=== PATIENT | female | born 1945 | race Caucasian/White ===

== ENCOUNTER 2017-04-07 15:11 | Emergency (ER) | payer MEDICARE, OTHER | END 2017-04-07 17:47 | disposition home or self-care (01) | LOC: FER 15:11 | DX: I87.2 Venous insufficiency (chronic) (peripheral) (principal); I73.9 Peripheral vascular disease, unspecified; R26.2 Difficulty in walking, not elsewhere classified; I10 Essential (primary) hypertension; I48.91 Unspecified atrial fibrillation; K22.70 Barrett's esophagus without dysplasia; Z88.2 Allergy status to sulfonamides; Z79.01 Long term (current) use of anticoagulants; Z79.899 Other long term (current) drug therapy; Z85.3 Personal history of malignant neoplasm of breast | CPT/HCPCS: 87070; 87077; 87186; 87205 ==

== ENCOUNTER 2017-04-08 20:33 | Emergency (ER) | payer MEDICARE, OTHER ==
[2017-04-08 21:48] LABS: BASOPHIL 0.6 % (0-2); EOSINOPHIL 1.7 % (0-7); HGB 14.2 g/dl (12.5-16.0); LYMPHOCYTE 31.6 % (15-48); MCH 30.7 pg (25.0-31.0); MCV 92.9 fL (78.0-100.0); MONOCYTE 6.2 % (0-12); MPV 10.2 fL (6.0-9.5); NEUTROPHIL 59.9 % (41-80); PLT 253 K/uL (150-400); RBC 4.63 M/uL (4.20-5.40); RDW 13.9 % (11.5-14.0); WBC 7.1 K/uL (4.0-10.5)
[2017-04-08 22:13] LABS: ALBUMIN 4.1 g/dL (3.4-4.8); BILIRUBIN - TOTAL 0.3 mg/dL (0.1-1.0); CREATININE 0.8 mg/dL (0.5-1.0); GLOBULIN (CALCULATION) 2.6 g/dL (2.2-4.2); POTASSIUM 4.1 mmol/L (3.5-5.1); TOTAL PROTEIN 6.7 g/dL (6.4-8.3)
== END 2017-04-08 23:10 | disposition home or self-care (01) ==
LOC: FER 20:33
PROVIDERS: Emergency Medicine
DX: I87.2 Venous insufficiency (chronic) (peripheral) (principal); I48.91 Unspecified atrial fibrillation; I10 Essential (primary) hypertension; G35 Multiple sclerosis; Z88.2 Allergy status to sulfonamides; Z79.899 Other long term (current) drug therapy; Z85.3 Personal history of malignant neoplasm of breast
CPT/HCPCS: 36415; 80053; 85025; 99283

== ENCOUNTER 2020-12-24 22:54 | Day surgery (SDCO) | payer OTHER ==
[~2020-12-24 22:54] MED LIST: ELIQUIS5 MG PO; FEOSOL325 MG PO; KEFLEX500 MG PO; LASIX40 MG PO; LOPRESSOR50 MG PO; NORCO 5-325 TA1 EACH PO; OMEPRAZOLE40 MG PO; PRAVACHOL20 MG PO; PREDNISONE 20MG20 MG PO; PRILOSEC20 MG PO; PRINIVIL10 MG PO; TOPROL XL100 MG PO
[2020-12-24 23:13] LABS: BASOPHIL 0.5 % (0-2); HCT 45.8 % (37.0-47.0); HGB 14.5 g/dl (12.5-16.0); LYMPHOCYTE 16.9 % (15-48); MCHC 31.7 g/dL (32.0-36.0); MCV 94.8 fL (78.0-100.0); MONOCYTE 7.4 % (0-12); MPV 10.5 fL (6.0-9.5); NRBC 0; PLT 225 K/uL (150-400); RBC 4.83 M/uL (4.20-5.40); WBC 10.4 K/uL (4.0-10.5)
[2020-12-24 23:27] LABS: ALBUMIN 3.5 g/dL (3.4-5.0); BILIRUBIN - DIRECT 0.1 mg/dL (0.00-0.20); BILIRUBIN - TOTAL 0.4 mg/dL (0.2-1.0); BUN/CREAT RATIO (CALC) 20.2 RATIO; CREATININE 0.84 mg/dL (0.51-0.95); GLOBULIN (CALCULATION) 3.6 g/dL; POTASSIUM 3.7 mmol/L (3.5-5.1); TOTAL PROTEIN 7.1 g/dL (6.4-8.2)
[2020-12-25 01:41] LABS: BILIRUBIN NEGATIVE (NEGATIVE); BLOOD NEGATIVE Ery/uL (NEGATIVE); CLARITY CLEAR (CLEAR); COLOR YELLOW (YELLOW); GLUCOSE (U) NORMAL (NORMAL); LEUKOCYTES NEGATIVE Leu/uL (NEGATIVE); NITRITE NEGATIVE (NEGATIVE); PROTEIN NEGATIVE (NEGATIVE); SPECIFIC GRAVITY 1.025 (1.001-1.030); UROBILINOGEN 0.2 mg/dL (0.2-1.0); pH 5.5 (5.0-9.0)
[2020-12-25] MEDS ORDERED: PRAVACHOL20 MG PO (03:48)
[2020-12-25] MEDS ORDERED: PRILOSEC20 MG PO (03:48)
[2020-12-25] MEDS ORDERED: LOPRESSOR50 MG PO (03:49)
[2020-12-25] MEDS ORDERED: PRINIVIL10 MG PO (03:50)
[2020-12-25] MEDS ORDERED: LASIX40 MG PO (03:50)
[2020-12-25] MEDS ORDERED: ELIQUIS5 MG PO (03:50)
[2020-12-25] MEDS ORDERED: CARDIZEM CD120 MG PO (03:51)
--- NOTE | 2020-12-25 04:28 | NUR ---
DUMONT CATHETER INSERTED BY HUGH CHAVEZ RN PER FACUNDO JURADO ORDERS AT [id number]
[2020-12-25 05:07] LABS: INR 1.32 (0.9-1.2); PROTHROMBIN TIME 15.6 SECONDS (11.4-13.6)
[2020-12-25 05:08] LABS: PTT 36.9 SECONDS (22.2-34.7)
[2020-12-25 07:05] LABS: BASOPHIL 0.5 % (0-2); EOSINOPHIL 0.6 % (0-7); HCT 45.9 % (37.0-47.0); HGB 14.8 g/dl (12.5-16.0); LYMPHOCYTE 16.2 % (15-48); MCH 30.2 pg (25.0-31.0); MCHC 32.2 g/dL (32.0-36.0); MCV 93.7 fL (78.0-100.0); MONOCYTE 8.1 % (0-12); MPV 10.5 fL (6.0-9.5); NEUTROPHIL 74.3 % (41-80); NRBC 0; PLT 230 K/uL (150-400); WBC 9.6 K/uL (4.0-10.5)
[2020-12-25 07:48] LABS: BUN/CREAT RATIO (CALC) 17.6 RATIO; C-REACTIVE PROTEIN 1.1 mg/dL (<=0.90); CREATININE 0.91 mg/dL (0.51-0.95); POTASSIUM 3.7 mmol/L (3.5-5.1)
--- NOTE | 2020-12-26 04:05 | NUR ---
PT HAD ORDER AT 0200 DOSE OF 2000MG OF VANCOMYCIN IN 250ML BAG TO GET GIVEN. WHEN SCANNING MEDICATION AND AFTER REVIEW THE MEDICATION PREVIOUSLY MIXED WAS 2000MG OF VANCOMYCIN IN 500ML OF NORMAL SALINE. WHEN I WENT TO GO TO [facility] IN ORDER TO MIX A NEW BAG AT THE CORRECT ORDER THE [facility] RELAYED THE MESSAGE THAT IF THE VANCOMYCIN DOSE WAS GREATER THAN 1500MG THAT IT SHOULD BE MIXED IN A 500ML BAG. CALLED AND SPOKE WITH A PHARMACIST THAT ASKED FOR PATIENTS NAME AND WAS TOLD THAT I WOULD RECIEVE A CALL BACK 0300 DID NOT RECEIEVE A CALL BACK FROM PHARMACY CALLED [facility] AND VEIFIED WITH RAMO THE PHARMACIST AND SHE STATED THAT 2000MG IN 500ML WAS THE CORRECT DOSE AND THAT SHE WOULD PLACE IT THE CORRECT WAY IN THE EMAR AND DISCONTINUE THE OTHER ORDER. VIKKI WAS WRITTEN.
[2020-12-26 05:53] LABS: BASOPHIL 0.5 % (0-2); EOSINOPHIL 1.7 % (0-7); HCT 41.1 % (37.0-47.0); HGB 13.2 g/dl (12.5-16.0); LYMPHOCYTE 21.4 % (15-48); MCH 30.2 pg (25.0-31.0); MCHC 32.1 g/dL (32.0-36.0); MCV 94.1 fL (78.0-100.0); MPV 10.3 fL (6.0-9.5); NEUTROPHIL 66.3 % (41-80); NRBC 0; PLT 210 K/uL (150-400); RBC 4.37 M/uL (4.20-5.40); RDW 14.6 % (11.5-14.0); WBC 7.6 K/uL (4.0-10.5)
[2020-12-26 06:24] LABS: BUN/CREAT RATIO (CALC) 18.9 RATIO; CREATININE 0.9 mg/dL (0.51-0.95); POTASSIUM 3.3 mmol/L (3.5-5.1)
--- NOTE | 2020-12-26 10:49 | NUR ---
12/26/20 Ms. Liu Oconnor lives alone. She has 2 daughters. One daughter visits daily. Ms. Hatfield was modified independent at home prior to "a few days" from admission. She has a CPAP, s. bench, 3in1, rw and wc. Currently she is unable to stand. OT/PT and Dr. Tanner recommend a SNF placement. Discharge options were discussed with Ms. Liu Oconnor. Her daughter, Becki Almazan, was included in the conversation via speaker phone. Ms. Steve Oconnor would like to stay in [place]. She chose [facility] as her first choice and [facility] as the second choice. - Referrals have been made by [facility].
--- NOTE | 2020-12-26 15:32 | NUR ---
REWRAPPED ANEL WRAPS ON BOTH LOWER LEGS FROM TOES TO KNEES.
[2020-12-27 05:36] LABS: BASOPHIL 0.4 % (0-2); HCT 41.8 % (37.0-47.0); HGB 13.3 g/dl (12.5-16.0); LYMPHOCYTE 20.1 % (15-48); MCH 30.2 pg (25.0-31.0); MCHC 31.8 g/dL (32.0-36.0); MCV 94.8 fL (78.0-100.0); MONOCYTE 7.8 % (0-12); MPV 10.4 fL (6.0-9.5); NEUTROPHIL 68.5 % (41-80); NRBC 0; PLT 213 K/uL (150-400); RBC 4.41 M/uL (4.20-5.40); RDW 14.6 % (11.5-14.0); WBC 8.6 K/uL (4.0-10.5)
[2020-12-27 06:36] LABS: BUN/CREAT RATIO (CALC) 20.2 RATIO; CREATININE 0.94 mg/dL (0.51-0.95); POTASSIUM 3.8 mmol/L (3.5-5.1)
[2020-12-27] MEDS ORDERED: KEFLEX250 MG PO (16:32)
[2020-12-27] MEDS ORDERED: FLORANEX TABLE1 EACH PO (16:32)
[2020-12-27] MEDS ORDERED: FUROSEMIDE 40MG40 MG PO (16:32)
[2020-12-27] MEDS ORDERED: DESYREL50 MG PO (16:35)
--- NOTE | 2020-12-27 17:33 | NUR ---
12/27/20 [facility] declined to accept patient. [facility] accepted and has received insurance authorization. Ms. Liu Oconnor accepted placement. Dr. Tanner and MS Laurie RN informed. Dr. Tanner reports pt to meet criteria for EMS transport.
== END 2020-12-27 18:20 ==
LOC: FER 22:54 → FMS 12-25 02:12
PROVIDERS: Allergy & Immunology Allergy; Nurse Practitioner; Student in an Organized Health Care Education/Training Program; ADMIT Internal Medicine
DX: I89.0 Lymphedema, not elsewhere classified (principal); L03.115 Cellulitis of right lower limb; I11.0 Hypertensive heart disease with heart failure; I50.9 Heart failure, unspecified; K22.70 Barrett's esophagus without dysplasia; G47.33 Obstructive sleep apnea (adult) (pediatric); I48.20 Chronic atrial fibrillation, unspecified; E78.5 Hyperlipidemia, unspecified; I73.9 Peripheral vascular disease, unspecified; G35 Multiple sclerosis; M19.90 Unspecified osteoarthritis, unspecified site; G62.9 Polyneuropathy, unspecified; Z20.822 Contact with and (suspected) exposure to COVID-19; Z79.01 Long term (current) use of anticoagulants; Z85.3 Personal history of malignant neoplasm of breast; Z88.2 Allergy status to sulfonamides; Z99.89 Dependence on other enabling machines and devices
CPT/HCPCS: 36415; 71045; 80048; 80076; 81003; 83880; 84484; 85025; 85610; 85730; 86140; 87040; 87077; 93005; 93970; 97163; 97167; 97530; 97530-GP; 97535; G0378; J1940; J2543; J3370; J7050; U0002

== ENCOUNTER 2020-12-29 21:19 | Day surgery (SDCO) | payer OTHER ==
[~2020-12-29 21:19] MED LIST changes: +CARDIZEM CD120 MG PO; +DESYREL50 MG PO; +FLORANEX TABLE1 EACH PO; +FUROSEMIDE 40MG40 MG PO; +KEFLEX250 MG PO
[2020-12-30 00:01] LABS: BASOPHIL 0.4 % (0-2); EOSINOPHIL 1.4 % (0-7); HGB 14.8 g/dl (12.5-16.0); LYMPHOCYTE 10.2 % (15-48); MCH 30.1 pg (25.0-31.0); MCHC 31.5 g/dL (32.0-36.0); MCV 95.7 fL (78.0-100.0); MONOCYTE 7.7 % (0-12); MPV 10.2 fL (6.0-9.5); NEUTROPHIL 80.1 % (41-80); NRBC 0; PLT 262 K/uL (150-400); RBC 4.91 M/uL (4.20-5.40); RDW 14.3 % (11.5-14.0)
[2020-12-30 00:11] LABS: INR 1.56 (0.9-1.2); PROTHROMBIN TIME 17.7 SECONDS (11.4-13.6)
[2020-12-30 00:12] LABS: PTT 37.3 SECONDS (22.2-34.7)
[2020-12-30 00:20] LABS: ALBUMIN 3.4 g/dL (3.4-5.0); BUN/CREAT RATIO (CALC) 23.1 RATIO; C-REACTIVE PROTEIN 6.1 mg/dL (<=0.90); CREATININE 0.91 mg/dL (0.51-0.95); GLOBULIN (CALCULATION) 4.2 g/dL; POTASSIUM 3.8 mmol/L (3.5-5.1); TOTAL PROTEIN 7.6 g/dL (6.4-8.2)
[2020-12-30 07:37] LABS: ALBUMIN 2.8 g/dL (3.4-5.0); BILIRUBIN - TOTAL 0.6 mg/dL (0.2-1.0); BUN/CREAT RATIO (CALC) 24.1 RATIO; CREATININE 0.83 mg/dL (0.51-0.95); GLOBULIN (CALCULATION) 3.5 g/dL; POTASSIUM 4.3 mmol/L (3.5-5.1); TOTAL PROTEIN 6.3 g/dL (6.4-8.2)
--- NOTE | 2020-12-30 14:16 | NUR ---
12/30/20 Ms. Liu Oconnor was admitted to [facility] on 12/27/20. She did not like the facility and left AMA. She reports to have fell in the parking lot. - Referrals have been sent to Arcenio Ye[facility] and [facility] per patient choice.
--- NOTE | 2020-12-30 15:59 | NUR ---
ATTEMPTED TO CATH A URINE IN BEDPAN, 1ST PT MISSED BP, SECOND TIME BRIEF NOT PULLED DOWN FAR ENOUGH. INFORMED MD THAT WAITING FOR PT TO VOID AGAIN. OK WITH WAITING FOR CATCH INSTEAD OF I AND O
[2020-12-31 00:17] LABS: BILIRUBIN NEGATIVE (NEGATIVE); BLOOD NEGATIVE Ery/uL (NEGATIVE); CLARITY CLEAR (CLEAR); COLOR YELLOW (YELLOW); GLUCOSE (U) NORMAL (NORMAL); LEUKOCYTES NEGATIVE Leu/uL (NEGATIVE); NITRITE NEGATIVE (NEGATIVE); PROTEIN NEGATIVE (NEGATIVE); SPECIFIC GRAVITY >=1.030 (1.001-1.030); UROBILINOGEN 0.2 mg/dL (0.2-1.0); pH 5.5 (5.0-9.0)
--- NOTE | 2021-01-01 00:29 | NUR ---
PATIENT AND DAUGHTER DO NOT [facility]. DAUGHTER STATED SHE HAS SPO[facility] [place] [facility] AND WAS INFORMED THAT THERE WILL BE A BED AVAILABLE Wednesday01/02/2021 THE FAMILY WOULD LIKE TO SPEAK WITH [facility] ABOUT GETTING HER MOTHER THERE. IF SHE NEEDS TO SEND HER TO [facility] UNTIL A BED IS AVAILABLE OR IF SHE NEEDS TO TAKE HER HOME THEN TAKE HER MOTHER TO [place] WEDNESDAY.
--- NOTE | 2021-01-01 10:46 | NUR ---
01/01 [facility] continue to be waiting on insurance approval. Fiona Lewis was requested to call insurance for an update.
--- NOTE | 2021-01-01 17:22 | NUR ---
01/01/21 [facility] has received insurance authorization and will accept patient tonight. Report given to Keya and Dr. Mosquera. Pt meets criteria for EMS transport. Please fax DS to: [phone]. Katherin Liu Oconnor accepted the placement.
[2021-01-01] MEDS ORDERED: NORCO 5-325 TA1 EACH PO (17:24)
[2021-01-01] MEDS ORDERED: MELATONIN5 M2 PO (17:24)
== END 2021-01-01 21:18 ==
LOC: FER 21:19 → FMS 12-30 01:11
PROVIDERS: Emergency Medicine Emergency Medical Services; Nurse Practitioner; ADMIT Hospitalist
DX: I89.0 Lymphedema, not elsewhere classified (principal); I48.20 Chronic atrial fibrillation, unspecified; I10 Essential (primary) hypertension; E78.5 Hyperlipidemia, unspecified; I73.9 Peripheral vascular disease, unspecified; W19.XXXA Unspecified fall, initial encounter; G47.30 Sleep apnea, unspecified; G35 Multiple sclerosis; M79.89 Other specified soft tissue disorders; K20.80 Other esophagitis without bleeding; K22.70 Barrett's esophagus without dysplasia; Z98.890 Other specified postprocedural states; Z79.01 Long term (current) use of anticoagulants; Z99.81 Dependence on supplemental oxygen; Z90.710 Acquired absence of both cervix and uterus; Z90.11 Acquired absence of right breast and nipple; Z96.651 Presence of right artificial knee joint; Z82.49 Family history of ischemic heart disease and other diseases of the circulatory system; Z88.2 Allergy status to sulfonamides; Z79.899 Other long term (current) drug therapy; Z85.3 Personal history of malignant neoplasm of breast; Z20.822 Contact with and (suspected) exposure to COVID-19
CPT/HCPCS: 36415; 72192; 73552; 73590; 73630; 73700; 80053; 81003; 85025; 85610; 85730; 86140; 94660; 97110; 97162; 97166; 97530; 97530-GP; 97535; G0378; J0696; J2270; J2405; J7030; U0002